=== PATIENT | female | born 1975 | race Caucasian/White ===

== ENCOUNTER 2017-11-07 23:27 | Inpatient (IN) | payer OTHER ==
[~2017-11-07] VITALS: Ht 162.6 cm; Wt 57.3 kg
[~2017-11-07 23:27] MED LIST: BENTYL10 M1 PO; COMPAZINE10 M1 PO
--- NOTE | 2017-11-07 23:37 | ED PSYCHIATRIC COMPLAINT ---
See Addendum History of Present Illness General Chief Complaint: Psychiatric Related Complaint Stated Complaint: +SI "NOT DOING WELL" Source: patient, old records Exam Limitations: no limitations Vital Signs & Intake/Output Vital Signs & Intake/Output Vital Signs Date Time Temp Pulse Resp B/P B/P Pulse O2 O2 Flow FiO2 Mean Ox Delivery Rate 11/08 2105 98.1 55 18 124/72 11/08 1848 98.1 55 18 124/72 98 Room Air 11/08 1458 98.7 60 18 136/70 97 Room Air 11/08 1249 97.1 80 18 140/78 98 Room Air 11/08 1210 99.0 56 18 152/83 11/08 1209 99.0 56 18 152/83 98 Room Air 11/08 0857 97.3 62 18 141/87 97 Room Air 11/08 0618 98.6 66 18 159/82 97 Room Air 11/08 0019 98.0 63 18 118/74 11/07 2349 98.0 63 18 118/74 100 Room Air ED Intake and Output 11/08 0000 11/07 1200 Intake Total Output Total Balance Patient 130 lb Weight Allergies Coded Allergies: shellfish derived (Severe, ANAPHYLAXIS 05/29/16) Triage Nurses Notes Reviewed? yes HPI: Patient presents to the emergency department with suicidal ideations. Patient has no plan. Patient denies homicidal ideations. Patient denies any hallucinations or delusions. Patient states she relapsed recently and has been sniffing opiates. (Rama GALINDO,Xavi Dumont) Reconcile Medications Albuterol Sulfate (Proair Hfa) 90 MCG HFA.AER.AD 2 PUF INH AD PRN RESP. ( Reported) Clonidine HCl 0.2 MG TABLET 1 TAB PO TID ANXIETY (Reported) Gabapentin 300 MG CAPSULE 1 CAP PO TID NERVE PAIN (Reported) Ibuprofen 800 MG TABLET 1 TAB PO TID PRN PAIN/INFLAMMATION (Reported) (Espinoza GALINDO,Dayo) Past History Medical History Any Pertinent Medical History? 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 Hx Contributory? No (Rama GALINDO,Xavi Dumont) Review of Systems Review of Systems Constitutional: Reports: no symptoms. EENTM: Reports: no symptoms. Respiratory: Reports: no symptoms. Cardiovascular: Reports: no symptoms. GI: Reports: no symptoms. Genitourinary: Reports: no symptoms. Musculoskeletal: Reports: no symptoms. Skin: Reports: no symptoms. Neurological/Psychological: Reports: see HPI, depressed. Hematologic/Endocrine: Reports: no symptoms. Immunologic/Allergic: Reports: no symptoms. All Other Systems: Reviewed and Negative (Rama GALINDO,Xavi Dumont) Physical Exam Physical Exam General Appearance: well developed/nourished, mild distress Head: atraumatic, normal appearance Eyes: Bilateral: PERRL, EOMI. Ears, Nose, Throat: normal pharynx, normal ENT inspection, hearing grossly normal Neck: normal inspection, supple, full range of motion Respiratory: normal breath sounds, chest non-tender, no respiratory distress, lungs clear Cardiovascular: regular rate/rhythm, normal peripheral pulses Gastrointestinal: normal bowel sounds, soft, non-tender Extremities: normal range of motion Neurological/Psychiatric: no motor/sensory deficits, awake, alert, calm, oriented x 3 Appearance/Memory/Insight: appropriate appearance, appropriate insight Behavoir/Eye Contact/Speech: cooperative, normal speech, good eye contact Thoughts/Hallucinations: normal thought pattern, no apparent hallucination Skin: intact, normal color, warm/dry SAD PERSONS Done? CRISIS CONSULT OBTAINED (Rama GALINDO,Xavi Dumont) Progress Differential Diagnosis: drug intoxication, drug overdose, drug withdrawal, electrolyte abnormality Plan of Care: Orders Procedure Date/time Status Regular Diet 11/08 B Active Continuous Observation Monitor 11/08 1900 Active Continuous Observation Monitor 11/08 1500 Active Continuous Observation Monitor 11/08 1100 Active Continuous Observation Monitor 11/08 0700 Active Continuous Observation Monitor 11/07 2332 Active URINE DRUGS OF ABUSE 11/07 2332 Complete URINALYSIS 11/07 2332 Complete HUMAN BETA HCG SCREEN 11/07 2332 Complete ETHANOL 11/07 2332 Complete COMPREHENSIVE METABOLIC PANEL 11/07 2332 Complete CBC WITHOUT DIFFERENTIAL 11/07 2332 Complete ED CRISIS PSYCH CONSULT 11/07 2332 Active Current Medications Sig/Adele Start time Last Medication Dose Stop Time Status Admin Lorazepam 2 MG FOUR TIMES A DAY PRN 11/08 2114 AC 11/08 (Ativan) 222 Olanzapine 5 MG Q4P PRN 11/08 193 (Zyprexa) Clonidine 0.2 MG TID 11/08 1400 UNVr 11/08 (Catapres) 210 Gabapentin 300 MG Q8 11/08 1400 UNVr 11/08 (Neurontin) 210 Benzocaine 1 ES Q4P PRN 11/08 0100 AC 11/08 (Orajel) 011 Ibuprofen 600 MG Q6P PRN 11/07 234 AC 11/08 (Motrin) 0931 Nicotine 2 MG Q2P PRN 11/07 2344 (Nicotine) Laboratory Tests 11/08/17 0219: Urine Opiates Screen > 4000.00 H, Methadone Screen < 40, Barbiturate Screen < 60, Ur Phencyclidine Scrn < 6.00, Amphetamines Screen < 100, U Benzodiazepines Scrn < 85, Urine Cocaine Screen 836 H, Urine Cannabis Screen < 5.00, Urine Color YEL, Urine Clarity CLEAR, Urine pH 6.5, Ur Specific [place] <= 1.005, Urine Protein NEG, Urine Ketones NEG, Urine Nitrite NEG, Urine Bilirubin NEG, Urine Urobilinogen 0.2, Ur Leukocyte Esterase MOD H, Ur Microscopic SEDIMENT EXAMINED, Urine RBC RARE, Urine WBC 10-15 H, Ur Epithelial Cells MANY H, Urine Bacteria MOD H, Urine Hemoglobin TRACE-INTACT, Urine Glucose NEG 11/08/17 0001: Anion Gap 9, Estimated GFR > 60, BUN/Creatinine Ratio 11.3, Glucose 105 H, Calcium 9.1, Total Bilirubin 0.5, AST 10 L, ALT 21, Alkaline Phosphatase 53, Total Protein 6.5, Albumin 3.6, Globulin 2.9, Albumin/Globulin Ratio 1.2, Total Beta HCG NEGATIVE, CBC w Diff NO MAN DIFF REQ, RBC 4.12 L, MCV 74.4 L, MCH 24.3 L, MCHC 32.6 L, RDW 18.8 H, MPV 8.3, Gran % 52.8, Lymphocytes % 37.5, Monocytes % 7.6, Eosinophils % 1.2, Basophils % 0.9, Absolute Granulocytes 4.5, Absolute Lymphocytes 3.2, Absolute Monocytes 0.6, Absolute Eosinophils 0.1, Absolute Basophils 0.1, Serum Alcohol < 10.0 Hand-Off Endorsed To: Dayo Doran MD Endorsed Time: 629 Pending: consult (CRISIS) (Rama GALINDO,Xavi Dumont) Hand-Off Endorsed To: Maik Abdi MD Endorsed Time: 1899 Pending: other (psych bed search) (Dayo Doran MD) Departure Departure Disposition: STILL A PATIENT Condition: Stable Clinical Impression Primary Impression: Suicidal ideation Referrals: Patient Has No Primary Care Dr (PCP/Family) Departure Forms: Customer Survey General Discharge Information (Rama GALINDO,Xavi Dumont)
[2017-11-08 00:27] LABS: ABSOLUTE BASOPHIL COUNT 0.1 /CUMM (0.0-0.2); ABSOLUTE EOSINOPHIL COUNT 0.1 /CUMM (0.0-0.7); ABSOLUTE GRANULOCYTE CT 4.5 /CUMM (1.4-6.5); ABSOLUTE LYMPH COUNT 3.2 /CUMM (1.2-3.4); ABSOLUTE MONOCYTE COUNT 0.6 /CUMM (0.10-0.60); BASOPHIL % 0.9 % (0.0-2.0); EOSINOPHIL % 1.2 % (0-5); GRANULOCYTE % 52.8 % (42.2-75.2); HEMATOCRIT 30.6 % (37-47); MEAN CORPUSCULAR HGB 24.3 PG (27.0-31.0); MEAN CORPUSCULAR HGB CONC 32.6 G/DL (33.0-37.0); MEAN CORPUSCULAR VOLUME 74.4 FL (81.0-99.0); MEAN PLATELET VOLUME 8.3 FL (7.4-10.4); PLATELET COUNT 296 /CUMM (130-400); RBC DISTRIBUTION WIDTH 18.8 % (11.5-14.5); RED BLOOD CELL CT 4.12 /CUMM (4.20-5.40); WHITE BLOOD CELL COUNT 8.5 /CUMM (4.8-10.8)
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
[2017-11-08] MEDS ORDERED: GABAPENTIN300 M2 PO (13:48)
[2017-11-08] MEDS ORDERED: CLONIDINE HCL0.2 M1 PO (13:49)
[2017-11-08] MEDS ORDERED: IBUPROFEN800 M1 PO (13:49)
[2017-11-08] MEDS ORDERED: PROAIR HFA8.5 GM INH (13:50)
--- NOTE | 2017-11-09 19:48 | ED PSYCHIATRIST/APRN CONSULT ---
See Addendum Psychiatrist/THERMOMETER TESTER ED Consult Assessment and Plan: SUBJECTIVE: Patient reports feeling extremely bad, in opiate withdrawal complaining of "my skin on fire." Also complaining of diaphoresis, lacrimation, body aches, restless legs, nausea and vomiting, diarrhea. Patient also reports a AVH of "shadows and things that look like bugs." Patient reports poor appetite, poor concentration, has been trying to sleep and hallway bed. Patient denies current SI with plan to overdose and is interested in inpatient admission. Psychoeducation and supportive therapy provided. Discussed plan for medications for detox, patient in agreement. Patient stated she is interested in possibly Suboxone or methadone treatment but is unsure at this time, we'll defer to primary team. Patient denies HI/VH/SIB, but has remote history of SIB many years ago. OBJECTIVE: Patient has been sleeping and hallway bed appearing pale, with covers up over her head. Patient has been inhered with staff instructions and medications. VSS. Current Medications Sig/Adele Start time Last Medication Dose Route Stop Time Status Admin Benzocaine 1 JAVI Q4P PRN 11/08 0100 AC 11/08 TOP 0111 Clonidine 0.1 MG FOUR TIMES A DAY PRN 11/09 1930 UNVr PO Clonidine 0 .STK-MED ONE 11/09 1412 DC PO Clonidine 0 .STK-MED ONE 11/09 0920 DC PO Clonidine 0 .STK-MED ONE 11/08 2110 DC PO Clonidine 0.2 MG TID 11/08 1400 DCr 11/09 PO 1409 Dicyclomine HCl 20 MG 4 TIMES/DAY PRN 11/09 1930 UNVr PO Gabapentin 0 .STK-MED ONE 11/09 1415 DC PO Gabapentin 0 .STK-MED ONE 11/09 0615 DC PO Gabapentin 0 .STK-MED ONE 11/08 2110 DC PO Gabapentin 300 MG Q8 11/08 1400 UNVr 11/09 PO 1409 Ibuprofen 600 MG Q6P PRN 11/07 2345 AC 11/08 PO 0931 Loperamide HCl 2 MG Q6P PRN 11/09 1930 UNVr PO Lorazepam 0 .STK-MED ONE 11/09 1412 DC PO Lorazepam 0 .STK-MED ONE 11/09 0623 DC PO Lorazepam 0 .STK-MED ONE 05/27 2222 DC PO Lorazepam 2 MG FOUR TIMES A DAY PRN 11/085 AC 11/09 PO 1412 Nicotine 2 MG Q2P PRN 11/075 AC PO Olanzapine 0 .STK-MED ONE 11/08 1950 DC PO Olanzapine 5 MG Q4P PRN 11/08 1929 DC PO Ondansetron HCl 0 .STK-MED ONE 11/09 1946 DC PO Ondansetron HCl 4 MG Q12P PRN 11/09 1929 UNVr PO Laboratory Tests 11/08/17 0219: Urine Opiates Screen > 4000.00 H, Methadone Screen < 40, Barbiturate Screen < 60, Ur Phencyclidine Scrn < 6.00, Amphetamines Screen < 100, U Benzodiazepines Scrn < 85, Urine Cocaine Screen 836 H, Urine Cannabis Screen < 5.00, Urine Color YEL, Urine Clarity CLEAR, Urine pH 6.5, Ur Specific [place] <= 1.005, Urine Protein NEG, Urine Ketones NEG, Urine Nitrite NEG, Urine Bilirubin NEG, Urine Urobilinogen 0.2, Ur Leukocyte Esterase MOD H, Ur Microscopic SEDIMENT EXAMINED, Urine RBC RARE, Urine WBC 10-15 H, Ur Epithelial Cells MANY H, Urine Bacteria MOD H, Urine Hemoglobin TRACE-INTACT, Urine Glucose NEG 11/08/17 0001: Anion Gap 9, Estimated GFR > 60, BUN/Creatinine Ratio 11.3, Glucose 105 H, Calcium 9.1, Total Bilirubin 0.5, AST 10 L, ALT 21, Alkaline Phosphatase 53, Total Protein 6.5, Albumin 3.6, Globulin 2.9, Albumin/Globulin Ratio 1.2, Total Beta HCG NEGATIVE, CBC w Diff NO MAN DIFF REQ, RBC 4.12 L, MCV 74.4 L, MCH 24.3 L, MCHC 32.6 L, RDW 18.8 H, MPV 8.3, Gran % 52.8, Lymphocytes % 37.5, Monocytes % 7.6, Eosinophils % 1.2, Basophils % 0.9, Absolute Granulocytes 4.5, Absolute Lymphocytes 3.2, Absolute Monocytes 0.6, Absolute Eosinophils 0.1, Absolute Basophils 0.1, Serum Alcohol < 10.0 Vital Signs Date Time Temp Pulse Resp B/P B/P Pulse O2 O2 Flow FiO2 Mean Ox Delivery Rate 11/09 1934 62 18 130/72 97 Room Air 11/09 1258 96.2 54 18 160/94 97 Room Air 11/09 1036 99.2 60 20 150/105 96 Room Air 11/09 0837 98.1 54 20 112/68 96 Room Air 11/09 0617 98.8 46 18 166/77 97 Room Air 11/09 0403 99.0 47 18 162/86 95 Room Air 11/09 0115 52 11/09 0020 98.7 40 18 134/76 99 Room Air 11/08 2105 98.1 55 18 124/72 MSE: GENERAL: Awoke to voice, oriented, poor eye contact, pale, in moderate distress javi to be in opiate withdrawal. SPEECH: Soft and low, brief. MOTOR: No tics, tremors, stereotypy, or abnormal movements MOOD: "Crap" AFFECT: sick appearing, lethargic, mood congruent, constricted range, non- labile, reasonably well related THOUGHT PROCESS: Logical linear and goal related but brief THOUGHT CONTENT: SI with plan to overdose, VH of shadows and bugs, no HI/AH/ SIB, no apparent grandiosity, paranoia, delusions, obsessions, ruminations COGNITION: Mild deficit in attention, memory or concentration JUDGMENT: Fair INSIGHT: Fair ASSESSMENT: 42-year-old female with history of opiate use disorder, cocaine use disorder, depression versus substance-induced mood disorder self presenting with SI in the context of opiate withdrawal and increased social stressors. At this time, patient continues to undergo significant opiate withdrawal and continues to endorse positive SI with planned overdose. Patient is risk of harm to self and meets inpatient criteria for voluntary admission, maintenance of safety, psychiatric stabilization, medical detox and aftercare planning. PLAN: -maintain safety, vs q4h, q15min checks, monitor withdrawal, hold for voluntary admission -start clonidine, ibuprofen, zofran, loperamine, bentyl -cont ativan for agitation and gabapentin -encourage oral fluids as tolerated -Awaiting Inpatient Psychiatry bed and morning -rest of plan per primary team
--- NOTE | 2017-11-10 21:16 | ED PSYCHIATRIST/APRN CONSULT ---
Psychiatrist/FIELD SERVICE SPECIALIST ED Consult Assessment and Plan: Seen for assessment for need of inpatient treatment. We reviewed the ER notes, the psychiatric crisis notes, 's note from 11/09 and interviewed the patient. The patient was interviewed in her room in the ED, Mrs.Kristy Hemphill,TEAM LEADER/RESEARCH PSYCHOLOGIST, present. She came into the emergency room complaining of suicidal ideation with plan to overdose on drugs in the context of recent loss of custody of her children, loss of job, relapsed on heroin and cocaine. She has past psychiatric history with a diagnosis of mood disorder (bipolar disorder versus major depressive disorder versus posttraumatic stress disorder), history of Alcohol use disorder, currently not drinking. Has history of opioid use disorder and benzodiazepine use disorder-not using benzodiazepines now.After a lengthy period of sobriety she relapsed on cocaine and heroin, reason for which she lost custody of her children. She appears as a thin, frail looking female looking much older than stated age, very pale, clad in hospital issued paper scrubs. Her speech is slurred and tangential, dizorganized discourse, incomprehensible at times. The patient reported anxiety, depressed mood, continues to have suicidal ideation feeling hopeless, worthless. During the interview she stood abruptly and staryed to look around the bed and underneath the pillow asking us if we had seen the cat. She seems to have visual hallucinations cat, bugs,not making any sense "I am looking for my cell phone so I can give you my insurance card... you definitely want to talk to your , right ?" Apparently this presentation was totally different from how she presented yesterday or even minutes prior to this interview when seen by the emergency room nurse. She appears to have facial asymmetry, she was very tired, with droopy eyelids. She adamantly denies using alcohol or benzodiazepines, the urine drug screen from the emergency room was positive for opioids and cocaine. We were unable to perform a complete mental status examination because of sedation and psychotic thinking. The patient reported that she accidentally hit her head on a cabinet, there is a visible bruise which is becoming dark and swollen. Dr. Lico Lackey MD performed a neurological examination which he said was normal. Curiously her behavior and discourse were completely different with Dr. Lackey when he was talking to her than when we did. After Dr. Lackey left, the sitter reported that the patient got out of the room and asked if her mother may take a shower and seemed to be hallucinating. Dr. Lico Lackey MD ordered a CT scan of her head, she will continue to be monitored in the emergency room and given symptomatic relief, she was able to give a safety promise whilst in the emergency room as well as on the inpatient psychiatric unit to which she agreed to. We will follow up on the results of the CT scan and continue [facility] if there are any discharges. She continues to need inpatient level of care, being psychotic and having suicidal ideation with plan to OD on drugs. Current Medications Sig/Adele Start time Last Medication Dose Stop Time Status Admin Clonidine 0.1 MG FOUR TIMES A DAY PRN 11/09 1929 AC 11/10 (Catapres) 190 Dicyclomine HCl 20 MG 4 TIMES/DAY PRN 11/09 1929 AC 11/10 (Bentyl) 190 Loperamide HCl 2 MG Q6P PRN 11/09 1929 AC 11/09 (Imodium) 2011 Ondansetron HCl 4 MG Q12P PRN 11/09 193 AC 11/10 (Zofran) 190 Lorazepam 2 MG FOUR TIMES A DAY PRN 11/08 2115 AC 11/11 (Ativan) 0036 Gabapentin 300 MG Q8 11/08 1400 UNVr 11/11 (Neurontin) 0628 Benzocaine 1 ES Q4P PRN 11/08 0100 AC 11/08 (Orajel) 0111 Ibuprofen 600 MG Q6P PRN 11/07 2344 AC 11/09 (Motrin) 2011 Nicotine 2 MG Q2P PRN 11/07 234 AC 11/10 (Nicotine) 1900 Vital Signs Date Time Temp Pulse Resp B/P B/P Pulse O2 O2 Flow FiO2 Mean Ox Delivery Rate 11/11 0652 95.0 46 16 147/92 98 Room Air 11/10 2050 97.2 76 16 114/70 100 Room Air 11/10 1899 112 122/85 11/10 1715 96.6 112 18 122/85 99 Room Air 11/10 1407 96.2 70 18 104/60 99 Room Air Orders Procedure Date/time Status CT HEAD WO IV CONTRAST 11/10 2046 Active Continuous Observation Monitor 11/11 415 Active Vital Signs Date Time Temp Pulse Resp B/P B/P Pulse O2 O2 Flow FiO2 Mean Ox Delivery Rate 11/10 2050 97.2 76 16 114/70 100 Room Air 11/10 1900 112 122/85 11/10 1715 96.6 112 18 122/85 99 Room Air 11/10 1407 96.2 70 18 104/60 99 Room Air 11/10 1205 96.1 77 16 110/56 96 Room Air 11/10 0524 98.9 65 18 99/60 100 Room Air 11/09 2316 95.7 65 18 110/61 99 Room Air
--- NOTE | 2017-11-10 22:47 | CT SCAN REPORT ---
EXAMINATION: CT HEAD WITHOUT CONTRAST CLINICAL INFORMATION: Trauma. Right forehead contusion. COMPARISON: None TECHNIQUE: Contiguous axial imaging was performed from the skull base to vertex without intravenous administration of contrast. DLP: 609.99 mGy-cm FINDINGS: There is no evidence of acute intracranial hemorrhage or territorial infarction. No abnormal mass effect or midline shift is seen. Chen to white matter differentiation is well preserved. No extra-axial fluid collections are identified. The ventricles are normal in size. There is no abnormal attenuation within the brain parenchyma. The osseous structures and soft tissues are normal. The mastoid air cells and visualized portions of the paranasal sinuses are well aerated. IMPRESSION: No acute intracranial pathology.
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
[2017-11-11 16:21] VITALS: BP 134/89
[2017-11-11 16:44] VITALS: BP 134/89
[2017-11-11 19:55] VITALS: BP 139/97
[2017-11-12 08:10] VITALS: BP 137/80
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
--- NOTE | 2017-11-12 10:30 | History & Physical ---
General Information and HPI History of Present Illness: This young female was admitted to the hospital because of increasing depression and expressing suicidal thoughts. She reports that she was on Suboxone and was clean for about 5 years but relapsed and went back to doing drugs about one and half months ago. Recently she had been a lot more depressed and wanted to kill herself and did not want to live anymore and therefore came to the hospital for help and treatment. She claims that she sees a psychiatrist on the outside and she has been on clonidine and gabapentin for a while in addition to the Suboxone for about 5 years but stopped taking Suboxone and went back to sniffing heroin type drug and occasional cocaine. She denies any specific ongoing medical problems and has just moved in this area from [place]. She denies any major surgery hospital admissions in the past and denies any admissions in [facility]. She admits to smoking about 1 pack of cigarettes a day for about 25 years and denies drinking any alcohol but admits to doing heroin and occasional cocaine. She is not and has 5 children who live with their father. Allergies/Medications Allergies: Coded Allergies: shellfish derived (Severe, ANAPHYLAXIS 05/29/16) Home Med list Albuterol Sulfate (Proair Hfa) 90 MCG HFA.AER.AD 2 PUF INH AD PRN RESP. ( Reported) Clonidine HCl 0.2 MG TABLET 1 TAB PO TID ANXIETY (Reported) Gabapentin 300 MG CAPSULE 1 CAP PO TID NERVE PAIN (Reported) Ibuprofen 800 MG TABLET 1 TAB PO TID PRN PAIN/INFLAMMATION (Reported) Past History Travel History Traveled to [place] past 21 day No Medical History Neurological: NONE EENT: NONE Cardiovascular: NONE Respiratory: NONE Gastrointestinal: NONE Hepatic: NONE Renal: NONE Musculoskeletal: NONE Psychiatric: depression Endocrine: NONE Blood Disorders: NONE Cancer(s): NONE INVENTORY REPRESENTATIVE/Reproductive: NONE History of MRSA: No History of VRE: No History of CDIFF: No Isolation History: Standard Surgical History Surgical History: non-contributory Past Family/Social History Family History Relations & Conditions if any No Known Family History. Psychosocial History Services at Home: None ETOH Use: occasional use Illicit Drug Use: heroin Review of Systems Review of Systems Constitutional: Denies: no symptoms, fever, malaise. EENTM: Denies: no symptoms (has dental problem for a while). Cardiovascular: Denies: no symptoms. Respiratory: Denies: no symptoms. GI: Reports: constipation. Denies: nausea, bloody stool. Genitourinary: Denies: no symptoms. Musculoskeletal: Reports: back pain. Skin: Denies: no symptoms. Neurological/Psychological: Reports: see HPI, anxiety, depressed, emotional problems. Hematologic/Endocrine: Denies: no symptoms. Exam & Diagnostic Data Last 24 Hrs of Vital Signs/I&O Vital Signs Date Time Temp Pulse Resp B/P B/P Pulse O2 O2 Flow FiO2 Mean Ox Delivery Rate 11/12 1022 64 119/74 11/12 0810 99.2 65 137/80 11/11 2118 80 126/88 11/11 1955 99.0 96 139/97 11/11 1644 86 134/89 11/11 1621 99.2 86 134/89 11/11 1545 97.1 61 14 148/85 96 Room Air Intake & Output 11/12 1600 11/12 0800 11/12 0000 Intake Total Output Total Balance Patient 126 lb Weight Physical Exam General Appearance Alert, Oriented X3, Cooperative, No Acute Distress Skin No Rashes, No Breakdown, No Significant Lesion HEENT Atraumatic, PERRLA, EOMI, Mucous Membr. moist/pink Neck Supple, No JVD, No thryomegaly, +2 Carotid Pulse wo Bruit Lymphatic Cervical nl Cardiovascular Regular Rate, Normal S1, Normal S2, No Murmurs, Gallops, Rubs Lungs Clear to Auscultation, Normal Air Movement Abdomen Normal Bowel Sounds, Soft, No Hepatospenomegaly, No Masses, some tenderness present in epigastric area on palpation but no guarding or rebound. Neurological Exam Findings: Normal Gait, Normal Speech, Strength at 5/5 X4 Ext, Normal Tone, Cranial Nerves 3-12 NL Cranial Nerves II through XII: Within normal limits and intact. Extremities No Clubbing, No Cyanosis, No Edema, No Tenderness/Swelling Assessment/Plan Assessment: This young female is admitted to the hospital because of drug abuse and polysubstance abuse and depression. She has no significant medical history in the past and is not on any medication. Her physical exam is fairly stable except for some tenderness in epigastric area. His admission lab is significant for somewhat low hemoglobin and hematocrit and the cause of that is not clear at this time. Her admission electrolytes the renal functions and liver functions are all normal. For now we will repeat her CBC as well as check a serum iron and ferritin to see any iron deficiency and we will use Mylanta for her epigastric discomfort for symptomatic relief and if she is iron deficient then may need more workup to find the cause of iron deficiency which may include the endoscopy especially the upper 1 to rule out any gastric or peptic etiology. As Ranked By This Provider Problem List: 1. Depression 2. Smoking 3. Suicidal ideation Miscellaneous Miscellaneous Documentation Attending Case Discussed With: Ken GALINDO,Maik Primary Care Physician: Patient Has No Primary Care Dr Patient sees these Specialists none Level of Patient Care: MOHSEN Lofton Attending MD Review Statement Attending Statement Attending MD Statement: examined this patient, reviewed EMR data (avail), discussed with nursing Attending Assessment/Plan: This young female is admitted for increasing depression and suicidal ideation. From medical standpoint she has some anemia with microcytic red cell indices which may be due to iron deficiency and the cause of that is not clear at this time. We will check her serum iron and ferritin etc. and if she is deficient in iron then further workup including endoscopy will be considered.
[2017-11-12 11:56] VITALS: BP 106/76
[2017-11-12 15:53] VITALS: BP 116/62
--- NOTE | 2017-11-12 18:20 | SOCIAL WORKER PROG NOTE PSYCH ---
Social Work Progress Note Progress Note This press writer met with patient. She stated that she came to the hospital for a Heroin detox. When asked about safety, patient denied SI and stated, "I just said whatever to get in to get clean." Patient stated that she attempted to go "cold turkey" at home but was unsuccessful. Patient expressed interest in attending an IOP upon discharge and would like to be prescribed Suboxone, which she has found effective in the past. She refused rehab referrals. Patient stated that she attends AA and does not have a sponsor. She denied SI/HI/AH/VH. She refused a family meeting. She stated that she plans to return home where she lives with her children. Patient identified being laid off about 6 weeks ago as the main trigger for her relapse. She reported daily Heroin use, 2 bundles, "sniffed" with last use on 11/07/17. Patient denied any legal or DCF involvement. She expressed interest in discharging tomorrow.
[2017-11-12 18:40] LABS: ABSOLUTE BASOPHIL COUNT 0.1 /CUMM (0.0-0.2); ABSOLUTE EOSINOPHIL COUNT 0.2 /CUMM (0.0-0.7); ABSOLUTE GRANULOCYTE CT 4.8 /CUMM (1.4-6.5); ABSOLUTE LYMPH COUNT 3.2 /CUMM (1.2-3.4); ABSOLUTE MONOCYTE COUNT 0.6 /CUMM (0.10-0.60); BASOPHIL % 0.7 % (0.0-2.0); GRANULOCYTE % 54.5 % (42.2-75.2); MEAN CORPUSCULAR HGB 24.2 PG (27.0-31.0); MEAN CORPUSCULAR VOLUME 75.6 FL (81.0-99.0); MEAN PLATELET VOLUME 9.2 FL (7.4-10.4); PLATELET COUNT 274 /CUMM (130-400); RBC DISTRIBUTION WIDTH 18.5 % (11.5-14.5); RED BLOOD CELL CT 4.37 /CUMM (4.20-5.40); WHITE BLOOD CELL COUNT 8.9 /CUMM (4.8-10.8)
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
--- NOTE | 2017-11-12 19:00 | SOCIAL WORKER PROG NOTE PSYCH ---
Social Work Progress Note Progress Note SW attempted to complete Social Hx. Pt in bed reports feeling tired and physically unwell. Pt requesting to meet tomorrow to complete.
[2017-11-12 19:46] VITALS: BP 127/70
[2017-11-13 07:56] VITALS: BP 142/81
--- NOTE | 2017-11-13 11:43 | CP SOUTH PROGRESS NOTE PSYCH ---
Psych (Inpt) Progress Note Progress Note Laboratory Tests Iron (37 - 170 ug/dL) 59 TIBC (265 - 497 ug/dL) 465 Ferritin (6.24 - 137 ng/mL) 6.5 WBC (4.8 - 10.8 /CUMM) 8.9 RBC (4.20 - 5.40 /CUMM) 4.37 Hgb (12.0 - 16.0 G/DL) 10.6 L Hct (37 - 47 %) 33.0 L MCV (81.0 - 99.0 FL) 75.6 L MCH (27.0 - 31.0 PG) 24.2 L MCHC (33.0 - 37.0 G/DL) 32.0 L RDW (11.5 - 14.5 %) 18.5 H Plt Count (130 - 400 /CUMM) 274 MPV (7.4 - 10.4 FL) 9.2 Gran % (42.2 - 75.2 %) 54.5 Lymphocytes % (20.5 - 51.1 %) 35.9 Monocytes % (1.7 - 9.3 %) 6.9 Eosinophils % (0 - 5 %) 2.0 Basophils % (0.0 - 2.0 %) 0.7 Absolute Granulocytes (1.4 - 6.5 /CUMM) 4.8 Absolute Lymphocytes (1.2 - 3.4 /CUMM) 3.2 Absolute Monocytes (0.10 - 0.60 /CUMM) 0.6 Absolute Eosinophils (0.0 - 0.7 /CUMM) 0.2 Vital Signs Date Time Temp Pulse B/P B/P Pulse O2 / 0920 4.0 11/13 0756 97.6 77 142/81 11/12 1946 98.2 69 127/70 Mental Status Examination: The patient was alert and oriented to time, place, and person. She was steady on her feet, and there were no abnormal movements. Patient was calm and cooperative. Psychomotor activity: Showed slightly intermittent elevated psychomotor activity and fidgetiness. Behavior: No abnormal or bizarre behaviors. Quality of speech: Patient was talkative with mild pressure. She showed full range of affect. Mood: feeling mostly anxious but a little bit depressed. She denied thinking of suicide. She denied thinking of violence or homicide. Brooke denied hallucinations. She denied feeling paranoid, there were no delusions. Patient was coherent, there were no difficulties with thought organization. Partial insight, Reasonable judgment, however judgment seems to be directly related to her abstinence from drugs or lack of. The patient was alert and oriented to time, place, and person. Patient seems to have reasonable attention and concentration during the interview she reported that she was diagnosed with ADHD as a teenager. There was no impairment in the patient's memory function Assessment: Brooke is a 42-year-old white female who presented to the emergency room with wishes of . She has relapsed to opiates and cocaine after several months of sobriety. She presented today with complaints about residual withdrawals from opiates. Diagnosis(es): Unspecified depressive disorder Opioid use disorder Cocaine use disorder Treatment Plan: D/C Home Diagnosis(es): Unspecified depressive disorder Opioid use disorder Cocaine use disorder Treatment Plan: D/C Home Diagnosis(es): Unspecified depressive disorder Opioid use disorder Cocaine use disorder Treatment Plan: D/C Home Diagnosis(es): Unspecified depressive disorder Opioid use disorder Cocaine use disorder Treatment Plan: D/C Home
[2017-11-13] MEDS ORDERED: GABAPENTIN300 M2 PO (11:48)
[2017-11-13] MEDS ORDERED: TRAZODONE HCL50 M1 PO (11:48)
--- NOTE | 2017-11-13 11:52 | Patient Discharge Instructions ---
Psych Discharge Inst General Discharge Information Reason for Admission: wishes of , no thoughts of suicide Psy Discharge Primary Diag+ Unspecified Depressive DO Opioid Use Disorder Psy Discharge Secondary Diag+ Cocaine Use Disorder Summary Tests/Major Procedures Urine toxicology upon her visit to the emergency room was positive for opioids and cocaine Studies Pending at DC: None Patient Instructions Contact Information Your Psychiatrist on [facility] was Fidelina GALINDO,Abdirashid * If you are experiencing an emergency related to this hospitalization, please call [phone] to contact the treating psychiatrist or the psychiatrist-on- call. * To Request a copy of your medical records, please contact the Medical Records Department at [phone]. * To request results of studies pending at the time of discharge, please call [phone]. * Continue your Medications until directed to stop by your Healthcare provider. General Medication Information Please continue to take your new medications and your continued home medications , unless otherwise indicated on your discharge medication list, or unless directed by your MD or EXTERNAL GRINDER TENDER to stop them. Special Instructions Diet Regular Activity Normal - Tobacco Use Treatment Offered Post DC Medications Offered: Refused Tob Medication Tx Post DC Tobacco Treatment Plan: Refused Tobacco Tx Pgm - EtOH/Drug Use D/O Treatment Offered Post DC Medications Offered: Med Not Indicated for D/O Post DC EtOH/SubAbuse TX Plan: Suman SubAbuse/Dual IOP Metabolic Screening ([X]) Not Applicable, patient not on a neuroleptic. Advance Directives Does the Patient have Medical Advance Directives No/Refused further info Does Pt have Psychiatric Advance Directives? No/Refused further info Does Patient have a Designated Surrogate Decision Maker: No Information About Psychiatric Advance Directives Provided? Refused Discharge Plan Post Hospital Treatment Plan: Dual Track IOP
--- NOTE | 2017-11-13 12:05 | DISCHARGE SUMMARY REPORT-PSYCH ---
Visit Information Visit Dates/Diagnosis' Admission Date: 11/11/17 Discharge Date: 11/13/17 Reason for Admission: wishes of , no thoughts of suicide Psy Discharge Primary Diag: Unspecified Depressive DO Opioid Use Disorder Psy Discharge Secondary Diag: Cocaine Use Disorder Hospital Course Significant Lab Findings: Lab Hct 33.0 % L 11/12/17 1705 Hgb 10.6 G/DL L 11/12/17 1705 Course Complications: Did not have any complications while she was on the inpatient psychiatric unit. Consultations: The patient had a history and physical examination by the placement specialist while she was on the inpatient psychiatric unit. Please refer to the patient's electronic health record for the details of the H&P. Allergies: Coded Allergies: shellfish derived (Severe, ANAPHYLAXIS 05/29/16) Hospital Course/TX Response: 11/12/2017: Initial psychiatric assessment by Dr. Fidelina MD impression and Plan: 42-year-old white female who presented to the emergency room with wishes of . She has relapsed to opiates and cocaine after several months of sobriety. She presented today with complaints about residual withdrawals from opiates. She denied thoughts of suicide today and denied wishing and seemed to be more interested in the Suboxone program at [facility] as opposed to doing an intensive outpatient program however she reported that she will keep an open mind when she meets with the transition social worker to discussed aftercare plans and discharge plans. DSM 5 Diagnosis(es): Unspecified depressive disorder Opioid use disorder Cocaine use disorder Treatment Plan: Inpatient psychiatric care with 15 minute checks for safety Continue observations for opiate withdrawals Methadone 10 mg 1 dose today We will reevaluate for discharge tomorrow. 11/13/2017: Mental Status Examination: The patient was steady on her feet, Unremarkable appearance. Patient was calm and cooperative. Psychomotor activity: Showed slightly intermittent elevated psychomotor activity and fidgetiness. Behavior: No abnormal or bizarre behaviors. Quality of speech: Patient was talkative with mild pressure. She showed full range of affect. Mood: He reported feeling mostly anxious but a little bit depressed. Suicidal Ideation: She denied thinking of suicide. She denied thinking of violence or homicide. Brooke denied hallucinations. She denied feeling paranoid, there were no delusions. Patient was coherent, there were no difficulties with thought organization. Partial insight, reasonable judgment, however judgment seems to be directly related to her abstinence from drugs or lack of. Orientation: The patient was alert and oriented to time, place, and person. Patient seems to have reasonable attention and concentration during the interview she reported that she was diagnosed with ADHD as a teenager. There was no impairment in the patient's memory function Assessment: Brooke is a 42-year-old white female who presented to the emergency room with wishes of . She has relapsed to opiates and cocaine after several months of sobriety. She presented today with complaints about residual withdrawals from opiates. Diagnosis(es): Unspecified depressive disorder Opioid use disorder Cocaine use disorder Treatment Plan: D/C Home Discharge HBIPS - Tobacco Use Treatment Offered Post DC Medications Offered: Refused Tob Medication Tx Post DC Tobacco Treatment Plan: Refused Tobacco Tx Pgm - EtOH/Drug Use D/O Treatment Offered Post DC Medications Offered: Med Not Indicated for D/O Post DC EtOH/SubAbuse TX Plan: [facility] SubAbuse/Dual IOP Metabolic Screening - Screen if on a Neuroleptic Medication - Metabolic screening should include: - Blood Pressure, BMI, Glucose or Hgb A1c, & a - Lipid profile from within the past 365 days. Metabolic Screening ([X]) Not Applicable, patient not on a neuroleptic. Discharge Instructions General Discharge Information Multiple Neuroleptics: ([X]) Not Applicable Discharge Diet Regular Discharge Activity Normal DC Disposition: Home Referrals Ordered Referrals Provider Referral 11/13/17 For Groups: [[facility]] [facility] [address], [place] [phone] Intake appointment: 11/13/17, at 1:15pm Provider Referral 11/25/17 For Providers: [[facility]] For Groups: [[facility]] [facility] [address], [place] [phone] Group meets every other Thursday at 4pm Next group: 11/25/17, at 4pm Prescriptions Stop taking the following medications: Gabapentin (Gabapentin) 300 MG CAPSULE ORAL THREE TIMES DAILY Qty = 90 Clonidine HCl (Clonidine HCl) 0.2 MG TABLET ORAL THREE TIMES DAILY Qty = 60 Continue taking these medications: Ibuprofen (Ibuprofen) 800 MG TABLET 1 Tablet ORAL THREE TIMES DAILY as needed for PAIN/INFLAMMATION Comments: Last Taken:11/13/17 Time:0920 Albuterol Sulfate (Proair Hfa) 90 MCG HFA.AER.AD 2 Puff Inhale through mouth As Directed as needed for RESP. Qty = 9 Comments: Last Taken:NOT TAKEN DURING THIS HOSPITALIZATION Time: Start taking the following new medications: Gabapentin (Gabapentin) 300 MG CAPSULE 600 Milligram ORAL EVERY SIX HOURS NEEDED as needed for ANXIETY/AGITATION /INSOMNIA Qty = 60 No Refills Comments: Last Taken:11/13/17 Time:0800 Trazodone HCl (Trazodone HCl) 50 MG TABLET 50 Milligram ORAL AT BEDTIME as needed for INSOMNIA Qty = 30 No Refills Comments: Last Taken:11/11/17 Time:2200 Studies Pending at Discharge None Copies To: -Dual IOP
[2017-11-13 12:29] VITALS: BP 129/63
--- NOTE | 2017-11-13 16:55 | SOCIAL WORKER PROG NOTE PSYCH ---
Social Work Progress Note Progress Note This tag writer met with patient. She reported her mood as "it's up today." She expressed looking forward to discharging today and stated that she would like to attend [facility], to include Suboxone, attend daily AA (90 in 90 and obtain sponsor ). She denied SI/HI/AH/VH. Patient identified her safety plan as "go to the hospital" and was accepting of the crisis numbers and warm lines. Patient stated that she spoke with Dr. Kitchen and understood that we are mandated reporters. She stated that her children are living with her mother in [place] and that the patient lives alone. This tag writer asked for clarification as she had informed this tag writer yesterday that she lives with her children and that she would be returning to live with her children upon discharge. Patient stated that this was not accurate and that her children only visit occassionally. Patient denied that any substance use occurred when the children were with her. Patient accepted an IOP intake for today at 1:15pm and was informed that [facility] offers Suboxone treatment. Chris Tong was informed of patient's interest in Suboxone treatment. Patient appeared to look forward to and be motivated for ongoing treatment with [facility]. This tag writer was informed by [facility] smash hand, Brooke Gupta LCSW that the patient did not attend the intake today and that it has been rescheduled for 11/16/17. Faxed Referral(s) Referred To: [facility] Transition of Care Documents sent: Health Summary Faxed to: [facility] Fax #: [phone] Faxed by: Bill Sprague LCSW Date faxed: 11/13/17 Time Faxed: [phone]
--- NOTE | 2017-11-13 18:29 | SOCIAL WORKER PROG NOTE PSYCH ---
Social Work Progress Note Progress Note DCF Careline Report made to careline worker Cecile Loomis on 11/13/17. DCF 136 faxed to [facility], per direction to Rachel Loomis.
== END 2017-11-13 13:05 | DRG 881 ==
LOC: ERH 23:27 → CP SOUTH 11-11 15:06 → ERHI 11-11 15:06 → ENTRNSPT 11-11 15:51 → EDTRNSPT 11-11 16:10 → EDTRNSPTSTS 11-11 16:10 → CMPTRNSPT 11-11 16:14 → CP SOUTH 11-11 16:15
PROVIDERS: Emergency Medicine; Internal Medicine
DX: F32.9 Major depressive disorder, single episode, unspecified (principal); F11.90 Opioid use, unspecified, uncomplicated; F14.90 Cocaine use, unspecified, uncomplicated
CPT/HCPCS: 36415; 80307; 81001; 96372; 99291; G0463; G0480; J1630; J1885; J3101